=== PATIENT | female | born 1975 | race Caucasian/White ===

== ENCOUNTER 2024-10-25 10:51 | Emergency (ER) | payer OTHER, SELFPAY ==
[2024-10-25 10:51] VITALS: BP 193/92; PULSE 91; RESP 16; TEMP 36.1; O2SAT 100; BMI 30.2
--- NOTE | 2024-10-25 11:31 | CT_ITS ---
EXAM: CT HEAD WITHOUT INTRAVENOUS CONTRAST CLINICAL INDICATION: headache TECHNIQUE: Multiple axial images were obtained of the head without intravenous contrast. This CT exam was performed using one or more of the following dose reduction techniques: automated exposure control, adjustment of the mA and/or kV according to patient size, and/or use of iterative reconstruction technique. COMPARISON: No relevant prior studies available. FINDINGS: BRAIN AND EXTRA-AXIAL SPACES: Normal. Normal brain attenuation. No intra- or extra-axial hemorrhage. No acute infarct. No intracranial mass or mass effect. There is preservation of the brennan/white matter interface. Posterior fossa structures are unremarkable. Ventricles are appropriate for age. No hydrocephalus. Basal cisterns are patent. BONES/JOINTS: Normal calvarium. SINUSES: Mucosal thickening within the right maxillary sinus. MASTOID AIR CELLS: Normal. Clear. SELLA: Small empty sella. CT/Brain/Head without Contrast IMPRESSION: No acute intracranial abnormality. Electronically Signed: Agustin Shaw MD at 12:43 EST ,
--- NOTE | 2024-10-25 11:31 | EKG12_ITS ---
Test Reason : WEAKNESS Blood Pressure : */* mmHG Vent. Rate : 73 BPM Atrial Rate : 73 BPM P-R Int : 94 ms QRS Dur : 74 ms QT Int : 404 ms P-R-T Axes : -4 26 7 degrees QTcB Int : 445 ms Sinus rhythm with short MI Otherwise normal ECG No previous ECGs available Confirmed by CANDY VELASCO, GENOVEVA ([id number]), photographic editor DALE ANDERSEN ([id number]) on 10/29/2024 8:38:32 AM Referred By: Confirmed By: GENOVEVA GUPTA MD
--- NOTE | 2024-10-25 11:33 | EX.ED.DYSGE1 ---
HPI <YOSEF Barone - Last Filed: 10/25/24 13:14> History of Present Illness Chief Complaint: Weakness Narrative Narrative: Patient is a 49-year-old female does not see a primary care physician. Patient states that she has not been feeling well for the last 3 days. Patient went to the urgent care today, diagnosed with a virus however that noticed that her blood pressure was high 174/100. Patient was then driving home, when she thought she felt tingling sensation to her face, left arm, and this concerned her. She is now here for evaluation. Patient dates she does have history of having high blood pressure whenever she is at a medical facility. Patient only takes [id number]-[id number] omeprazole. Denies any other medical history. PFSH <YOSEF Barone - Last Filed: 10/25/24 13:14> PFSH Allergy/AdvReac Type Severity Reaction Status Date / Time Opioids - Morphine Analogues Allergy Hives Verified 10/25/24 10:54 Social History Smoking Status: Never smoker ROS <YOSEF Barone - Last Filed: 10/25/24 13:14> ROS ED ROS Narrative Constitutional: Negative for fever, chills, weight loss, weakness Eyes: Negative for vision loss, vision change, double vision ENT: Negative for any sore throat, ear pain, congestion Cardiovascular: Negative for any chest pain, tightness, palpitations Respiratory: Negative for any cough, sputum production, hemoptysis, dyspnea, dyspnea on exertion, orthopnea Gastrointestinal: Negative for any abdominal pain, nausea, vomiting, diarrhea, constipation, blood in stool, blood in vomit : Negative for any urinary frequency, dysuria, retention, blood in urine Muscle skeletal: Negative for any neck pain, back pain Neurological: Negative for any syncope, dizziness. Positive for headache, facial tingling, left finger tingling Skin: Negative for any rashes, itching, abrasions, lacerations Psychiatric: Negative for any depression, anxiety, stress, suicidal ideation, homicidal ideation Hematologic: Negative for any excessive bruising, easy bleeding EXAM <YOSEF Barone - Last Filed: 10/25/24 13:14> Physical Exam Narrative Exam Narrative: Vital signs reviewed. Patient is in no obvious distress. Patient's vital signs show blood pressure 174/89. Patient does appear slightly anxious. HEET: Head normocephalic atraumatic, TMs clear bilaterally. Posterior pharynx is clear, moist mucous membranes. Nares clear bilaterally. Neck: Supple with no lymphadenopathy or tenderness. No signs of meningismus. Cardiac: Regular rate and rhythm no murmurs gallops or rubs, equal peripheral pulses bilaterally. Respiratory: Lungs clear to auscultation bilaterally. No chest tenderness. Abdomen: Soft, nontender, nondistended. No abdominal bruit or pulsatile masses. No hepatosplenomegaly Extremities: No peripheral edema, no signs of gross trauma or deformity. Active full range of motion of all extremities. Neuro: Cranial nerves II through XII intact, no focal neurological deficits. NIH stroke scale 0 Skin: Clean dry and intact with no rash, purpura, petechiae, vesicles or pustules. Backs/flank: No CVA tenderness, no midline spinal tenderness, no deformity. Psych: Normal mood and affect. No SI, HI or acute psychosis. Const Vital Signs: 10/25/24 10:51 10/25/24 11:31 10/25/24 12:55 Temperature 97 F L Temperature Source Temporal Pulse Rate 91 71 Respiratory Rate 16 15 Respiratory Effort Normal Non-Labored Respiratory Pattern Normal Blood Pressure 193/92 H 134/76 H Blood Pressure Mean 125 95 Pulse Ox 100 97 Oxygen Delivery Method Room Air Positive well nourished and well developed General Appearance ED: well developed <Dr. Melissa Yu DO - Last Filed: 10/25/24 13:10> Physical Exam Const Vital Signs: 10/25/24 10:51 10/25/24 11:31 10/25/24 12:55 Temperature 97 F L Temperature Source Temporal Pulse Rate 91 71 Respiratory Rate 16 15 Respiratory Effort Normal Non-Labored Respiratory Pattern Normal Blood Pressure 193/92 H 134/76 H Blood Pressure Mean 125 95 Pulse Ox 100 97 Oxygen Delivery Method Room Air MDM <YOSEF Barone - Last Filed: 10/25/24 13:14> MDM Lab Data Labs: Laboratory Results - last 24 hr 10/25/24 11:13 WBC 4.7 RBC 4.03 L Hgb 11.7 L Hct 36.7 L MCV 91.1 MCH 29.0 MCHC 31.9 L RDW Std Deviation 46.2 H RDW Coeff of Antonio 14.0 Plt Count 361 MPV 9.5 Immature Gran % (Auto) 0.400 Neut % (Auto) 49.6 Lymph % (Auto) 38.9 Pope % (Auto) 9.6 Eos % (Auto) 1.1 Baso % (Auto) 0.4 Absolute Neuts (auto) 2.3 Absolute Lymphs (auto) 1.83 Nucleated RBC % 0 Sodium 139 Potassium 3.6 Chloride 106 Carbon Dioxide 28.0 Anion Gap 4 L BUN 10 Creatinine 0.86 Estim Creat Clear Calc 72.05 Est GFR (MDRD) Af Amer 90 Est GFR (MDRD) Non-Af 74 BUN/Creatinine Ratio 11.6 Glucose 103 Calcium 8.9 Troponin I High Sens 30 Radiography Diagnostic Testing: Clinical Impression(s) from Imaging Studies Brain CT 10/25/24 11:31 IMPRESSION: No acute intracranial abnormality. Electronically Signed: Agustin Shaw MD at 12:43 EST , Chest X-Ray 10/25/24 11:57 IMPRESSION: No acute cardiopulmonary disease. Electronically Signed: Agustin Shaw MD at 12:47 EST , EKG Normal sinus rhythm: Attestation: I personally reviewed and interpreted this EKG as follows: Interpretation: Sinus Rhythm Comments: Sinus rhythm with rate of 73 bpm, ND interval 94 ms, QRS duration 74 ms, no acute ST elevation, no acute infarct noted. Treatment and Re-Evaluation :: Differential diagnosis includes however is not limited to: Hypertensive urgency, CVA, TIA, anxiety, essential hypertension Patient appears generally well, vital signs are stable, patient is nontoxic-appearing. Presenting to the emergency department for complaints of anxiety, facial tingling, left hand tingling. On my physical examination, and a stroke scale 0, I do believe this may be anxiety related. However patient will receive a cardiac workup as well as a CT scan of the brain. EKG will be obtained. After talking with myself, patient states he felt much better. All radiologic examinations were read, reviewed by the emergency department attending. From these reads, a plan of care will be put in place. Patient CT scan of the brain, cervical spine was unremarkable. Laboratory values were gross unremarkable. Patient troponin was negative. Patient's blood pressure was much improved with 134/76. At this time, the patient felt much better. Patient instructed to return for any worsening symptoms. Patient be given a referral to primary care. All questions were answered, stable for discharge. <Dr. Melissa Yu, DO - Last Filed: 10/25/24 13:10> [facility] Narrative Medical decision making narrative: I have personally performed a face to face assessment of the patient and have reviewed the [facility] Note. I performed a substantive portion of the visit including all aspects of the following. My crews findings include: History is [patient presents to the emergency department with about 3 to 4-day history of cough and congestion and head cold. She has been taken Mucinex and erfk-pia-oqueabt cold remedies. 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 She went to urgent care today and where she had COVID flu and RSV testing which was negative. Patient was noted to be hypertensive and told to go home and rest. She states that her blood pressure sometimes elevates when she goes to the doctor's office. While on the way home she developed a severe headache and some numbness to the left side of her face and left arm kind of felt hot and tingly. She came in for evaluation. Currently the tingling in her face is resolved and she only complains of a knot discomfort to the ring finger on the left hand and the small finger. She denies weakness otherwise. She denies vision change or difficulty with speech. Patient unsure if this is her anxiety. She also has history of migraines but never like this. Her headaches significantly improved from when it started.] Exam is [HEENT-PERRLA, EOMI. Cranial nerves II through XII grossly intact. TMs clear. Mucous membranes moist. No adenopathy. Cardiovascular-regular rate and rhythm without murmur or ectopy Lungs-clear to auscultation, chest wall stable without crepitus or subcu emphysema Abdomen-normoactive bowel sounds, soft, nontender, no rebound or rigidity, no peritoneal signs. Neuro zomw-supgyg-gsvu and heel copeland testing within normal limits, negative Romberg, negative pronator drift, fundi benign. NIH stroke scale is 0. Extremities-intact ?4, normal range of motion, normal pulses, atraumatic] Medical Decison Making [patient presents with hypertension and vague complaints of some paresthesias. She does have known history of anxiety. She tells me she has whitecoat hypertension typically when she goes to the doctor's office it is elevated. Clinically she looks well. NIH stroke scale is 0. Suspicion very low for stroke. Workup included CT scan of the brain without contrast that was unremarkable. CBC with differential was normal. Chemistries normal. Troponin was negative. 1 view chest x-ray unremarkable. Without any treatment blood pressure normalized to 134/76. Symptoms currently resolved otherwise. Patient will be discharged to home with diagnosis of viral URI and cephalgia now resolved. Transient hypertension. Patient advised to keep a journal of her blood pressures within next week and follow-up with her primary care physician.] Other additions or changes: [None] Lab Data Attestation: I reviewed the patient's lab results. Labs: Laboratory Results - last 24 hr 10/25/24 11:13 WBC 4.7 RBC 4.03 L Hgb 11.7 L Hct 36.7 L MCV 91.1 MCH 29.0 MCHC 31.9 L RDW Std Deviation 46.2 H RDW Coeff of Antonio 14.0 Plt Count 361 MPV 9.5 Immature Gran % (Auto) 0.400 Neut % (Auto) 49.6 Lymph % (Auto) 38.9 Pope % (Auto) 9.6 Eos % (Auto) 1.1 Baso % (Auto) 0.4 Absolute Neuts (auto) 2.3 Absolute Lymphs (auto) 1.83 Nucleated RBC % 0 Sodium 139 Potassium 3.6 Chloride 106 Carbon Dioxide 28.0 Anion Gap 4 L BUN 10 Creatinine 0.86 Estim Creat Clear Calc 72.05 Est GFR (MDRD) Af Amer 90 Est GFR (MDRD) Non-Af 74 BUN/Creatinine Ratio 11.6 Glucose 103 Calcium 8.9 Troponin I High Sens 30 Radiography Diagnostic Testing: Clinical Impression(s) from Imaging Studies Brain CT 10/25/24 11:31 IMPRESSION: No acute intracranial abnormality. Electronically Signed: Agustin Shaw MD at 12:43 EST , Chest X-Ray 10/25/24 11:57 IMPRESSION: No acute cardiopulmonary disease. Electronically Signed: Agustin Shaw MD at 12:47 EST Reading Location ID and State: [id number] Tel , Service support , Discharge Plan Triage Chief Complaint: Weakness ED Midlevel Provider: Tyron Costello ED Provider: Melissa Yu Dx/Rx/DC Orders Clinical Impression: Anxiety, Viral syndrome, Headache Instructions: Understanding Headache Pain, ED Viral Syndrome (Adult) Primary Care Provider: Care Physician,No Primary Referrals: Tyron Og MD [Med Staff - Active Staff] - Care Physician,No Primary [Primary Care Provider] - Activity Restrictions/Additional Instructions: Please follow-up outpatient. Print Language: Japanese
[2024-10-25 11:45] LABS: Absolute Lymphocyte Count 1.83 X10^3/uL (0.83-4.51); Absolute Neutrophil Count 2.3 X10^3/uL (2.0-7.7); Basophil# 0.02 X10^3/uL; Basophil% 0.4 % (0-1); Eosinophil# 0.05 X10^3/uL; Eosinophils% 1.1 % (0-5); Hematocrit 36.7 % (37-47); Hemoglobin 11.7 g/dL (12.0-15.0); Lymphocyte # 1.83 X10^3/ul (0.83-4.51); Lymphocyte % 38.9 % (19-41); Mean Corp Hgb Conc 31.9 g/dL (32-36); Mean Corpuscular Volume 91.1 fL (81-99); Mean Platelet Vol. 9.5 fl (6.2-12.0); Monocyte# 0.45 X10^3/uL; Monocyte% 9.6 % (0-10); NRBC Flagged by Analyzer 0 % (0-5); Neutrophil # 2.33 X10^3/uL (2.7-7.7); Neutrophil % 49.6 % (47-70); Platelet Count 361 K/mm3 (150-450); RBC Distribution Width SD 46.2 fl (35.1-43.9); Red Blood Count 4.03 M/mm3 (4.2-5.4); White Blood Count 4.7 K/mm3 (4.4-11.0)
[2024-10-25] MEDS: Acetaminophen 500 MG Tablet 1000 MG PO (11:46)
--- NOTE | 2024-10-25 11:57 | RAD_ITS ---
EXAM: XR CHEST, 1 VIEW CLINICAL INDICATION: cough TECHNIQUE: Frontal view of the chest. COMPARISON: No relevant prior studies available. FINDINGS: LUNGS AND PLEURAL SPACES: Normal. No consolidation or edema. No pneumothorax. No effusion. HEART: Normal heart size. MEDIASTINUM: No mediastinal or hilar mass. BONES/JOINTS: No acute abnormality. RAD/Chest 1 View (Portable) IMPRESSION: No acute cardiopulmonary disease. Electronically Signed: Agustin Shaw MD at 12:47 EST ,
[2024-10-25 12:03] LABS: Anion Gap 4 (5-15); BUN 10 mg/dL (7-18); BUN/Creat Ratio 11.6 RATIO (10-20); Calcium,Total 8.9 mg/dL (8.5-10.1); Chloride 106 mmol/L (98-107); Creatinine, Serum 0.86 mg/dL (0.55-1.02); EST Glomerular Filtration Rate 74 mL/min (>60); Est Glom Filt Rate - Afr Amer 90 mL/min (>60); Estimated Creatinine Clearance 72.05 ml/min; Glucose 103 mg/dL (74-106); Potassium 3.6 mmol/L (3.5-5.1); Sodium Level 139 mmol/L (136-145); Troponin-I HS 30 pg/mL (3.0-54.0)
[2024-10-25 12:55] VITALS: BP 134/76; PULSE 71; RESP 15; O2SAT 97
[2024-10-25 13:09] VITALS: BP 128/64; PULSE 72; RESP 15; TEMP 36.3; O2SAT 99
== END 2024-10-25 13:17 | disposition home or self-care (01) ==
PROVIDERS: Nurse Practitioner; Emergency Provider Emergency Medicine; Visit Provider Emergency Medicine
DX: F41.9 Anxiety disorder, unspecified (principal); R53.1 Weakness; R51.9 Headache, unspecified; B34.9 Viral infection, unspecified; I10 Essential (primary) hypertension; R29.700 NIHSS score 0
CPT/HCPCS: 70450; 71045; 80048; 84484; 85025; 93005; 99283; A4216